=== PATIENT | male | born 1980 | race Hispanic/Latino ===

== ENCOUNTER → 2024-01-14 | Outpatient (CLI) | payer OTHER, MEDICARE ==
[2024-01-14] MEDS: REGADENOSON 0.4 MG/5 ML PF SYG IVP ONE (13:44)
== END | disposition home or self-care (01) ==
LOC: SHCH 08:22
PROVIDERS: ATTEND Student in an Organized Health Care Education/Training Program
DX: I25.10 Atherosclerotic heart disease of native coronary artery without angina pectoris (principal)
CPT/HCPCS: 78452; 96374; 93017; J2785; A9500 ×2

== ENCOUNTER → 2025-03-03 | Outpatient (CLI) | payer OTHER, MEDICAID ==
--- NOTE | 2025-03-07 21:31 | HMCIMG ---
EXAM: Nuclear Medicine Gastric Emptying Scan. INDICATION: Nausea and vomiting. REFERENCE EXAMINATION: None. TECHNIQUE: 2.1 mCi of Tc99m sulfur colloid with egg whites, 2 slices of bread/jam, 4 ounces of water. FINDINGS: The transit of radiopharmaceuticals is seen from the stomach into the small bowel. Half gastric emptying was achieved at 67 minutes. IMPRESSION: Scintigraphic findings suggest normal gastric emptying. /Epworth
== END | disposition home or self-care (01) ==
LOC: RAH 10:45
PROVIDERS: ATTEND Internal Medicine Gastroenterology
DX: R11.2 Nausea with vomiting, unspecified (principal)
CPT/HCPCS: 78264; A9541